=== PATIENT | female | born 1980 | race African-American/Black ===

== ENCOUNTER 2019-06-04 13:20 | Emergency (ER) | payer OTHER ==
[~2019-06-04] VITALS: Ht 170.2 cm; Wt 76.1 kg
[2019-06-04 15:43] VITALS: BP 139/80
[2019-06-04] MEDS ORDERED: ONDANSETRON HCL 4MG/2ML INJ IV STA (16:01)
[2019-06-04] MEDS ORDERED: FAMOTIDINE 20MG/2ML VIAL IV STA (16:01)
[2019-06-04] MEDS ORDERED: SODIUM CHLORIDE 0.9% 1,000 ML IV ONE (16:01)
== END 2019-06-04 16:18 | disposition left against medical advice (07) ==
LOC: ER 13:20
DX: Z53.21 Procedure and treatment not carried out due to patient leaving prior to being seen by health care provider (principal); F17.210 Nicotine dependence, cigarettes, uncomplicated
CPT/HCPCS: J7030

== ENCOUNTER 2019-09-26 11:12 | Emergency (ER) | payer OTHER ==
[~2019-09-26] VITALS: Ht 170.2 cm; Wt 75.0 kg
[2019-09-26] MEDS: IBUPROFEN 400MG TABLET PO ONE ×2 (11:45→11:54)
[2019-09-26] MEDS ORDERED: HYDROCODONE/ACETAMINOPHEN 5/325MG TABLET PO ONE (12:45)
[2019-09-26 12:48] VITALS: BP 140/82
== END 2019-09-26 12:59 | disposition home or self-care (01) ==
LOC: ER 11:12
DX: S93.602A Unspecified sprain of left foot, initial encounter (principal); M72.2 Plantar fascial fibromatosis; F17.200 Nicotine dependence, unspecified, uncomplicated; D64.9 Anemia, unspecified; F41.9 Anxiety disorder, unspecified; M20.12 Hallux valgus (acquired), left foot; M21.612 Bunion of left foot; X58.XXXA Exposure to other specified factors, initial encounter; Y93.9 Activity, unspecified; Y92.9 Unspecified place or not applicable; Z71.6 Tobacco abuse counseling; Z88.6 Allergy status to analgesic agent; Z97.5 Presence of (intrauterine) contraceptive device
CPT/HCPCS: 73630; 73650; 81025; 93971; 99284; 99406

== ENCOUNTER 2019-10-26 09:20 | Emergency (ER) | payer OTHER ==
[~2019-10-26] VITALS: Ht 170.2 cm; Wt 81.0 kg
[2019-10-26] MEDS: KETOROLAC 60MG/2ML VIAL IM ONE (11:50)
[2019-10-26] MEDS: ONDANSETRON 4MG ODT PO ONE (13:07)
[2019-10-26] MEDS: FAMOTIDINE 20MG TABLET PO ONE (13:07)
[2019-10-26 13:29] VITALS: BP 142/89
== END 2019-10-26 13:30 | disposition home or self-care (01) ==
LOC: ER 09:20
DX: M25.511 Pain in right shoulder (principal); F41.9 Anxiety disorder, unspecified; Z98.890 Other specified postprocedural states; Z88.6 Allergy status to analgesic agent
CPT/HCPCS: 73030; 81025; 96372; 99283; J1885; Q0162